=== PATIENT | male | born 1975 | race African-American/Black ===

== ENCOUNTER 2023-05-26 20:06 | Emergency (ER) | payer BC ==
[~2023-05-26] VITALS: Ht 177.8 cm; Wt 75.0 kg
[2023-05-26 20:08] VITALS: O2SAT 99
[2023-05-26 20:43] VITALS: BP 181/126; PULSE 105; RESP 16; TEMP 97.6
[2023-05-26 21:56] LABS: BASOPHILS % 1.2 % (0.0-2.0); HEMATOCRIT. 46.5 % (42.0-52.0); LYMPHOCYTES % 23.1 % (20.0-50.0); MEAN CORPUSCULAR HEMOGLOBIN 32.4 pg (28.0-32.0); MEAN CORPUSCULAR HGB CONC 34.4 g/dL (31.0-37.0); NEUTROPHILS % 61.7 % (40.0-76.0); RED BLOOD CELL COUNT 4.95 mill/uL (4.7-6.1); RED CELL DISTRIBUTION WIDTH 13.8 % (11.6-14.6); WHITE BLOOD COUNT 11.8 x1000/uL (4.5-11.0)
[2023-05-26 21:59] LABS: DIFFERENTIAL COMMENT 1
[2023-05-26 22:12] LABS: MEAN PLATELET VOLUME 8.8 fl (7.4-10.4); PLATELET 249 x1000/uL (130-400)
[2023-05-26 22:15] LABS: ALANINE AMINOTRANSFERASE 35 IU/L (10-49); ALBUMIN 4.4 g/dL (3.2-4.8); ASPARTATE AMINOTRANSFERASE 31 IU/L (<34); BILIRUBIN TOTAL 0.2 mg/dL (0.1-1.0); CALCIUM 9.1 mg/dL (8.7-10.4); CARBON DIOXIDE 22 mEq/L (21-32); CHLORIDE 111 mEq/L (98-107); CREATININE 1.2 mg/dL (0.6-1.3); GLUCOSE 74 mg/dL (70-105); POTASSIUM 4.4 mEq/L (3.5-5.1); SODIUM 142 mEq/L (136-145); UREA NITROGEN BLOOD 8 mg/dL (9-23)
[2023-05-26 22:19] LABS: ETHANOL BLOOD < 10 mg/dL (<10)
== END 2023-05-27 00:53 | disposition home or self-care (01) ==
LOC: ER 20:06
DX: R40.20 Unspecified coma (principal); J45.909 Unspecified asthma, uncomplicated; V49.49XA Driver injured in collision with other motor vehicles in traffic accident, initial encounter; Y93.89 Activity, other specified; Y92.89 Other specified places as the place of occurrence of the external cause; Y99.8 Other external cause status
CPT/HCPCS: 36415; 71045; 71250; 74176; 80053; 80320; 85025; 93005; 99291; G0480